=== PATIENT | male | born 1950 | race Two or more races ===

== ENCOUNTER 2024-05-18 13:01 | Emergency (ER) | payer MEDICAID ==
[~2024-05-18] VITALS: Ht 170.2 cm; Wt 78.9 kg
[2024-05-18 13:44] LABS: SITE, VBG VBG - N/A; VBG BASE EXCESS -1.2 mmol/L (-2.0-3.0); VBG MetHb 0.4 % (0.5-1.5); VBG O2Hb 82.2 % (0-79); VBG OXYGEN SATURATION 82.5 % (60.0-85.0); VBG PCO2 37.3 mmHg (38.0-54.0); VBG PH 7.408 (7.320-7.430); VBG PO2 46.8 mmHg (23.0-48.0); VBG TOTAL HEMOGLOBIN 15.2 G/dL (13.5-17.5)
[2024-05-18 13:45] LABS: BASOPHILS % (AUTO) 0.3 % (0.0-2.0); EOSINOPHILS # (AUTO) 0.3 K/uL (0.0-0.7); EOSINOPHILS % (AUTO) 4.7 % (0.0-6.0); HEMATOCRIT 41 % (39-51); HEMOGLOBIN 14.6 g/dL (13.5-17.5); LYMPHOCYTES # (AUTO) 2.4 K/uL (0.8-4.8); LYMPHOCYTES % (AUTO) 32.9 % (20.0-44.0); MEAN CORPUSCULAR HEMOGLOBIN 34 PG (26.0-33.0); MEAN CORPUSCULAR HGB CONC 36 g/dl (31.0-36.0); MEAN CORPUSCULAR VOLUME 94 fL (80-96); MONOCYTES # (AUTO) 0.7 K/uL (0.1-1.30); MONOCYTES % (AUTO) 8.9 % (2.0-12.0); NEUTROPHILS # (AUTO) 3.9 K/uL (1.8-8.9); NEUTROPHILS % (AUTO) 53.2 % (43.0-81.0); PLATELET COUNT (AUTO) 167 K/uL (150-450); RED BLOOD CELL COUNT(AUTO) 4.36 MIL/uL (4.5-6.0); RED CELL DISTRIBUTION WIDTH 13.1 % (11.5-15.0); WHITE BLOOD COUNT (AUTO) 7.3 K/uL (4.3-11.0)
[2024-05-18 14:15] LABS: ALANINE AMINOTRANSFERASE 41 U/L (12-78); ALBUMIN 3.9 g/dL (3.4-5.0); ALKALINE PHOSPHATASE 86 U/L (46-116); ASPARTATE AMINOTRANSFERASE 28 U/L (15-37); BILIRUBIN,DIRECT 0.2 mg/dL (0.0-0.2); BILIRUBIN,TOTAL 0.7 mg/dL (0.2-1.0); CALCIUM, SERUM 8.6 mg/dL (8.5-10.1); CHLORIDE 98 mmol/L (98-107); GLUCOSE 239 mg/dL (74-106); NT-PRO BNP 109 pg/mL (0-125); POTASSIUM 3.9 mmol/L (3.5-5.1); SODIUM SERUM 134 mmol/L (136-145); TOTAL PROTEIN, SERUM 7.2 g/dL (6.4-8.2); UREA NITROGEN, BLOOD 15 mg/dL (7-18)
[2024-05-18 14:20] LABS: CARBON DIOXIDE 27 mmol/L (21-32)
[2024-05-18] MEDS ORDERED: AZIT250T13 PO (14:40)
[2024-05-18 14:57] VITALS: BP 126/71; TEMP 98.3; O2SAT 98
== END 2024-05-18 14:57 | disposition home or self-care (01) ==
LOC: ER 13:37
DX: E11.65 Type 2 diabetes mellitus with hyperglycemia (principal); R42 Dizziness and giddiness; R07.9 Chest pain, unspecified; R91.8 Other nonspecific abnormal finding of lung field
CPT/HCPCS: 36415; 71045-TC; 80048-TC; 80076-TC; 82010-TC; 82803-TC; 82962-TC; 83880; 84484-TC; 85025-TC

== ENCOUNTER 2024-10-27 00:07 | Emergency (ER) | payer MEDICAID ==
[~2024-10-27] VITALS: Ht 172.7 cm; Wt 79.4 kg
[~2024-10-27 00:07] MED LIST: AZIT250T13 PO
[2024-10-27] MEDS ORDERED: MINERAL OIL 133 ML (PYXIS) 1 EA ENEMA RC ONE (00:59)
[2024-10-27] MEDS: MINERAL OIL 133 ML (PYXIS) 1 EA ENEMA RC ONE (01:00)
[2024-10-27] MEDS ORDERED: DOCU-141 PO (01:33)
[2024-10-27] MEDS ORDERED: POLY17PO4 PO (01:33)
[2024-10-27 01:54] VITALS: BP 116/59; TEMP 98.6; O2SAT 98
== END 2024-10-27 01:55 | disposition home or self-care (01) ==
LOC: ER 00:19
DX: K59.00 Constipation, unspecified (principal); E11.9 Type 2 diabetes mellitus without complications